=== PATIENT | male | born 1965 | race Caucasian/White ===

== ENCOUNTER 2018-12-06 17:50 | Emergency (ER) | payer OTHER ==
[2018-12-06] MEDS ORDERED: Lidocaine 1% 30 ML SDV INJECT ONE (17:56)
[2018-12-06] MEDS ORDERED: Bacitracin Oint 1 GM U/D Packet TOP ONE (17:56)
--- NOTE | 2018-12-06 17:56 | EDM.PDOC ---
<BelindaCortezian - Last Filed: 12/06/18 17:55> ED HPI GENERAL MEDICAL PROBLEM - General Chief Complaint: Laceration Stated Complaint: FISH HOOKS IN HAND [id number] Time Seen by Provider: 12/06/18 17:55 Source of Information: Reports: Patient, RN, RN Notes Reviewed History Limitations: Reports: No Limitations - History of Present Illness Onset: Today Duration: Constant - Related Data Allergies Allergy/AdvReac Type Severity Reaction Status Date / Time No Known Allergies Allergy Verified 12/06/18 17:56 Home Meds: Home Meds . [No Known Home Meds] 12/06/18 [History] Course - Vital Signs Last Recorded V/S: Last Vital Signs Temp 98.1 F 12/06/18 18:00 Pulse 80 12/06/18 18:00 Resp 18 12/06/18 18:00 BP 124/60 12/06/18 18:00 Pulse Ox 99 12/06/18 18:00 - Orders/Labs/Meds Meds: Medications Discontinued Medications Generic Name Dose Route Start Last Admin Trade Name Zac PRN Reason Stop Dose Admin Bacitracin 1 dose 12/06/18 17:56 12/06/18 19:56 Bacitracin Oint 1 Gm TOP 12/06/18 17:57 1 dose ONETIME ONE Administration Lidocaine HCl 30 ml 12/06/18 17:56 12/06/18 19:56 Xylocaine-Mpf 1% INJECT 12/06/18 17:57 30 ml ONETIME ONE Administration Departure - Departure Disposition: Home, Self-Care 01 Clinical Impression: Fish hook injury of finger of left hand Qualifiers: Encounter type: initial encounter Qualified Code(s): S69.92XA - Unspecified injury of left wrist, hand and finger(s), initial encounter - Discharge Information Instructions: Puncture Wound, [id number] Referrals: PCP,None [Primary Care Provider] - Forms: ED Department Discharge Additional Instructions: monitor for infection, increased redness swelling, drainage fever, if noted follow up for reevaluation tylenol or motrin for discomfort antibiotic ointment bandaide wash with soap and water at least twice daily keflex 500mg 3 times daily for 5 days <Marcia Feliz - Last Filed: 12/07/18 07:18> ED HPI GENERAL MEDICAL PROBLEM - History of Present Illness INITIAL COMMENTS - FREE TEXT/NARRATIVE: Fish hook left 3rd, 2 prong of 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 ED ROS GENERAL - Review of Systems Review Of Systems: ROS reveals no pertinent complaints other than HPI. ED EXAM, SKIN/RASH Exam: See Below Exam Limited By: No Limitations General Appearance: Alert, Mild Distress Eye Exam: Bilateral Eye: EOMI Ears: Normal External Exam Nose: Normal Inspection Throat/Mouth: Normal Inspection, Normal Oropharynx Head: Atraumatic Neck: Full Range of Motion Respiratory/Chest: No Respiratory Distress Cardiovascular: Normal Peripheral Pulses Neurological: Alert, Oriented Psychiatric: Normal Affect Location, Skin: Upper Extremity, Left (fish hook) Associated features: Tenderness ED SKIN PROCEDURES - Foreign Body Removal Consent Obtained:: Patient Foreign Body Other Location Comment:: left 3rd finger fishook 2 of 3 trebal mid palmar surface. cleansed betadine local with 1 % lido 1ml, hook cut push through no complications. Bandaid bacitracin dressing Anesthesia Type: Local (1%) Complications:: No Course - Vital Signs Last Recorded V/S: Last Vital Signs Temp 98.1 F 12/06/18 18:00 Pulse 80 12/06/18 18:00 Resp 18 12/06/18 18:00 BP 124/60 12/06/18 18:00 Pulse Ox 99 12/06/18 18:00 Departure - Departure Time of Disposition: 19:07 - Discharge Information *PRESCRIPTION DRUG MONITORING PROGRAM REVIEWED*: No *COPY OF PRESCRIPTION DRUG MONITORING REPORT IN PATIENT ALLA: No
== END 2018-12-06 19:20 | disposition home or self-care (01) ==
LOC: DL.ED 17:50
DX: S60.453A Superficial foreign body of left middle finger, initial encounter (principal); W45.8XXA Other foreign body or object entering through skin, initial encounter
CPT/HCPCS: 99282; J2001; 10120